=== PATIENT | male | born 1975 | race Caucasian/White ===

== ENCOUNTER 2022-04-18 13:12 | Outpatient (CLI) | payer OTHER | END 2022-04-18 13:13 | disposition home or self-care (01) | LOC: CSHLAB 13:12 | PROVIDERS: ATTEND Otolaryngology Otolaryngic Allergy | DX: Z01.818 Encounter for other preprocedural examination (principal); Z20.822 Contact with and (suspected) exposure to COVID-19; J34.2 Deviated nasal septum; J34.3 Hypertrophy of nasal turbinates; G47.33 Obstructive sleep apnea (adult) (pediatric) | CPT/HCPCS: 87811; 93005; 93010 ==

== ENCOUNTER 2022-04-22 05:54 | Observation (INO) | payer OTHER ==
[2022-04-18 09:51] VITALS: BMI 28.8
[2022-04-22] MEDS ORDERED: Oxymetazoline HCl 0.05% ( 15 ML ) ONE (07:13)
[2022-04-22] MEDS ORDERED: EPINEPHrine 1 MG/ML AMP ONE (08:41)
[2022-04-22] MEDS ORDERED: Fentanyl 250 MCG/5 ML VIAL ONE (08:46)
[2022-04-22] MEDS ORDERED: PROPOFOL 20 ML ONE ×2 (08:46→08:48)
[2022-04-22] MEDS ORDERED: Midazolam HCl 2 mg/2 ml Vial ONE (08:46)
[2022-04-22] MEDS ORDERED: Lidocaine 1% PF 5 ML VIAL ONE (08:47)
[2022-04-22] MEDS ORDERED: Rocuronium Bromide 10 MG/ML (10ML VIAL) ONE (08:47)
[2022-04-22] MEDS ORDERED: Glycopyrrolate 0.2 MG/ML 5 ML SYRINGE ONE (08:47)
[2022-04-22] MEDS ORDERED: Ondansetron PF 4 MG/2 ML Vial ONE (08:47)
[2022-04-22] MEDS ORDERED: Dexamethasone 4 mg/ml Vial ONE (08:47)
[2022-04-22] MEDS ORDERED: Mupirocin 2% Ointment 22 GM Tube ONE (08:48)
[2022-04-22] MEDS ORDERED: Ondansetron ODT 4 MG TAB PO PRN (08:50)
[2022-04-22] MEDS ORDERED: Ondansetron PF 4 MG/2 ML Vial IVP PRN (08:50)
[2022-04-22] MEDS ORDERED: Acetaminophen/Codeine 30-300mg Tablet PO PRN (08:52)
[2022-04-22] MEDS ORDERED: Oxymetazoline HCl 0.05% ( 15 ML ) NASAL PRN (08:53)
[2022-04-22] MEDS ORDERED: Ibuprofen 600 MG TAB PO PRN (08:54)
[2022-04-22] MEDS ORDERED: Fentanyl 100 MCG/2 ML VIAL ONE ×2 (10:22→11:59)
[2022-04-22] MEDS ORDERED: HYDROcodone/Acetaminophen 5/325 mg Tablet ONE (13:25)
[2022-04-22] MEDS: Acetaminophen/Codeine 30-300mg Tablet PO PRN (16:21)
[2022-04-22] MEDS: Sodium Chloride 0.65% Nasal 44 ML BOT EA NARE SCH ×4 (16:50→20:49)
[2022-04-22] MEDS ORDERED: Amlodipine 10 MG TAB PO SCH ×2 (21:00)
[2022-04-22] MEDS ORDERED: traZODone HCl 50 MG TAB PO SCH (21:00)
[2022-04-22] MEDS ORDERED: Cyclobenzaprine 10 MG TAB PO SCH (21:00)
[2022-04-22] MEDS ORDERED: Lisinopril 20 MG TAB PO SCH (21:00)
[2022-04-23] MEDS: Acetaminophen/Codeine 30-300mg Tablet PO PRN ×2 (00:26→07:22)
[2022-04-23] MEDS: Sodium Chloride 0.65% Nasal 44 ML BOT EA NARE SCH (08:00)
[2022-04-23 08:23] VITALS: BP 135/81; TEMP 98.6
== END 2022-04-23 09:15 | disposition home or self-care (01) ==
LOC: CSHSDC 05:54 → CSHTELE 08:50 → INTOOBSV 08:50 → UNDOADMIN 16:15 → CSHTELE 16:15
PROVIDERS: ADMIT Otolaryngology Otolaryngic Allergy; ATTEND Otolaryngology Otolaryngic Allergy
PROC: 09BM0ZZ Excision of Nasal Septum, Open Approach (ICD-10-PCS; principal; 2022-04-22)
PROC: 09TL0ZZ Resection of Nasal Turbinate, Open Approach (ICD-10-PCS; 2022-04-22)
PROC: 4A1ZXQZ Monitoring of Sleep, External Approach (ICD-10-PCS; 2022-04-22)
DX: J34.2 Deviated nasal septum (principal); J34.3 Hypertrophy of nasal turbinates; G47.33 Obstructive sleep apnea (adult) (pediatric); Z79.899 Other long term (current) drug therapy; I10 Essential (primary) hypertension; R06.83 Snoring; E78.5 Hyperlipidemia, unspecified; Z20.822 Contact with and (suspected) exposure to COVID-19
CPT/HCPCS: J0171; J1100; J2250; J2405; J2704; J3010